=== PATIENT | male | born 1990 | race American Indian/Alaskan Native ===

== ENCOUNTER 2016-12-15 00:11 | Emergency (ER) | payer SELFPAY ==
[2016-12-15] MEDS ORDERED: TYLENOL PO ONE (00:32)
[2016-12-15] MEDS ORDERED: NACL 0.9% 1000 ML 1,000 ML IV ONE ×2 (00:33→03:22)
[2016-12-15 03:16] VITALS: BP 104/53
[2016-12-15] MEDS ORDERED: TORADOL IV ONE (03:22)
[2016-12-15 03:48] LABS: Hematocrit 35.8 % (35.5-45.6); Hemoglobin 12.3 gm/dl (11.8-15.2); Mean Corpuscular HGB Conc 34 % (32-34); Mean Corpuscular Hemoglobin 32 pg (28-32); Mean Corpuscular Volume 93 fl (84-94); Platelet Count 286 K/mm3 (140-440); Red Blood Count 3.84 M/mm3 (3.65-5.03); Red Cell Distribution Width 11.8 % (13.2-15.2); White Blood Count 4.4 K/mm3 (4.5-11.0)
[2016-12-15 04:26] LABS: Anion Gap 11 mmol/L; BUN/Creatinine Ratio 18.57; Blood Urea Nitrogen 13 mg/dL (9-20); Calcium 8.1 mg/dL (8.4-10.2); Carbon Dioxide 27 mmol/L (22-30); Chloride 101.1 mmol/L (98-107); Glucose 96 mg/dL (75-100); Potassium 3.5 mmol/L (3.6-5.0); Sodium 136 mmol/L (137-145)
[2016-12-15] MEDS ORDERED: K-DUR PO ONE (04:35)
--- NOTE | 2016-12-15 04:51 | Emergency Department Report ---
ED Fever HPI - General Chief Complaint: Chest Pain Stated Complaint: CHEST PAIN/SOB Time Seen by Provider: 12/15/16 00:41 Source: patient Exam Limitations: no limitations - History of Present Illness Initial Comments: 26-year-old male with no significant past medical history presents to the hospital complaining of fever and chest pain. Pain is in the anterior mid chest radiating to the left upper chest and lateral thoracic wall. Pain is rated 6/10 in intensity, sharp, constant, and some worsening with movement and palpation. No specific alleviating factors reported. Positive occasional cough reported and mild shortness of breath. Patient denies sore throat, headache, nausea, vomiting, abdominal pain, diarrhea, dysuria, sick contacts, or recent travel. ED Review of Systems ROS: Stated complaint: CHEST PAIN/SOB Other details as noted in HPI Comment: All other systems reviewed and negative Other: Constitutional: As per HPI Eyes: No eye pain visual changes or discharge ENT: No ear pain or throat pain Neck: Denies pain Respiratory: As per HPI Cardiovascular: As per HPI GI: Denies abdominal pain, nausea, vomiting, diarrhea : Denies dysuria, urinary frequency, or urgency Musculoskeletal: Denies back pain Skin: Denies rash, lesions, erythema Neurologic: Denies headache, numbness, weakness Psychiatric: Denies suicidal ideation, hallucinations ED Past Medical Hx - Past Medical History Previous Medical History?: No - Surgical History Past Surgical History?: No - Social History Smoking Status: Never Smoker Substance Use Type: Alcohol - Medications Home Medications: Home Medications Medication Instructions Recorded Confirmed Last Taken Type Azithromycin [Zithromax Z-ENRICO] 1 dose PO DAILY 5 Days 12/15/16 Unknown Rx Ibuprofen [Motrin] 800 mg PO Q8HR PRN #30 tablet 12/15/16 Unknown Rx traMADol [Ultram 50 MG tab] 50 mg PO Q6HR PRN #20 tablet 12/15/16 Unknown Rx ED Physical Exam - General Limitations: No Limitations - Other Other exam information: General: No limitations, patient is alert in no acute distress Head exam: Atraumatic, normocephalic Eyes exam: Normal appearance, pupils equal reactive to light, extraocular movements intact ENT: Moist mucous membrane, normal oropharynx, no exudate Neck exam: Normal inspection, full range of motion, no meningismus nontender Respiratory exam: Clear to auscultation bilateral, no wheezes, rales, crackles Cardiovascular: Normal rate and rhythm, normal heart sounds. Reproducible anterior chest wall tenderness Abdomen: Soft, nondistended, and nontender, with normal bowel sounds, no rebound, or guarding Extremity: Full range of motion normal inspection no deformity or tenderness or edema Back: Normal Inspection, full range of motion, no tenderness Neurologic: Alert, oriented x3, cranial nerves intact, no motor or sensory deficit Psychiatric: normal affect, normal mood Skin: Warm, dry, intact ED Course Vital Signs 12/15/16 12/15/16 12/15/16 00:21 01:10 01:12 Temperature 103.1 F H Pulse Rate 126 H 109 H Respiratory 16 18 14 Rate Blood Pressure 115/73 Blood Pressure [Left] O2 Sat by Pulse 96 98 100 Oximetry 12/15/16 12/15/16 12/15/16 01:14 01:30 02:00 Temperature 103 F H Pulse Rate 111 H 111 H 108 H Respiratory 14 22 22 Rate Blood Pressure 101/53 103/54 Blood Pressure 107/59 [Left] O2 Sat by Pulse 95 94 95 Oximetry 12/15/16 12/15/16 12/15/16 02:33 02:41 03:00 Temperature 98.8 F Pulse Rate 105 H 96 H Respiratory 21 19 Rate Blood Pressure 94/64 104/53 Blood Pressure [Left] O2 Sat by Pulse 93 93 Oximetry 12/15/16 12/15/16 12/15/16 03:31 04:01 04:15 Temperature Pulse Rate 94 H 83 89 Respiratory 12 18 12 Rate Blood Pressure 104/53 104/53 Blood Pressure 104/53 [Left] O2 Sat by Pulse 93 94 99 Oximetry - Reevaluation(s) Reevaluation #1: 12/15/16 04:48 Patient treated with Tylenol, Toradol, normal saline with improvement in symptoms ED Medical Decision Making - Lab Data Result diagrams: 12/15/16 00:31 12/15/16 00:31 Lab Results 12/15/16 12/15/16 12/15/16 Range/Units 00:31 00:31 00:31 WBC 4.4 L (4.5-11.0) K/mm3 RBC 3.84 (3.65-5.03) M/mm3 Hgb 12.3 (11.8-15.2) gm/dl Hct 35.8 (35.5-45.6) % MCV 93 (84-94) fl MCH 32 (28-32) pg MCHC 34 (32-34) % RDW 11.8 L (13.2-15.2) % Plt Count 286 (140-440) K/mm3 [place] % (Auto) [employer] VBG pH (7.320-7.420) Sodium 136 L (137-145) mmol/L Potassium 3.5 L (3.6-5.0) mmol/L Chloride 101.1 (98-107) mmol/L Carbon Dioxide 27 (22-30) mmol/L Anion Gap 11 mmol/L BUN 13 (9-20) mg/dL Creatinine 0.7 L (0.8-1.5) mg/dL Estimated GFR > 60 ml/min BUN/Creatinine Ratio 18.57 % Glucose 96 (75-100) mg/dL Lactic Acid 0.60 L (0.7-2.0) mmol/L Calcium 8.1 L (8.4-10.2) mg/dL Troponin T < 0.010 (0.00-0.029) ng/mL 12/15/16 Range/Units 00:52 WBC (4.5-11.0) K/mm3 RBC (3.65-5.03) M/mm3 Hgb (11.8-15.2) gm/dl Hct (35.5-45.6) % MCV (84-94) fl MCH (28-32) pg MCHC (32-34) % RDW (13.2-15.2) % Plt Count (140-440) K/mm3 [place] % (Auto) VBG pH 7.447 H (7.320-7.420) Sodium (137-145) mmol/L Potassium (3.6-5.0) mmol/L Chloride (98-107) mmol/L Carbon Dioxide (22-30) mmol/L Anion Gap mmol/L BUN (9-20) mg/dL Creatinine (0.8-1.5) mg/dL Estimated GFR ml/min BUN/Creatinine Ratio % Glucose (75-100) mg/dL Lactic Acid (0.7-2.0) mmol/L Calcium (8.4-10.2) mg/dL Troponin T (0.00-0.029) ng/mL - EKG Data -: EKG Interpreted by Me (sinus tach 120 left atrial enlargement) - EKG Data When compared to previous EKG there are: previous EKG unavailable - Radiology Data Radiology results: image reviewed (chest x-ray PA and lateral: No acute findings ) - Medical Decision Making Vital signs have improved with fever reduction and IV fluids. Patient be discharged home with a Z-Enrico for bronchitis and medication for pain and fever reduction. - Differential Diagnosis viral syndrome, pneumonia, bronchitis, sepsis Critical Care Time: No Critical care attestation.: If time is entered above; I have spent that time in minutes in the direct care of this critically ill patient, excluding procedure time. ED Disposition Clinical Impression: Acute bronchitis, Viral syndrome Disposition: TO HOME OR SELFCARE Is pt being admited?: No Does the pt Need Aspirin: No Condition: Stable Instructions: Acute Bronchitis (ED), Viral Syndrome (ED) Additional Instructions: Take the medication as prescribed. Return if symptoms worsen. You may take Tylenol motion as needed for pain or fever. Prescriptions: Azithromycin [Zithromax Z-ENRICO] 1 dose PO DAILY 5 Days Ibuprofen [Motrin] 800 mg PO Q8HR PRN #30 tablet PRN Reason: Pain traMADol [Ultram 50 MG tab] 50 mg PO Q6HR PRN #20 tablet PRN Reason: Pain Referrals: [facility] [Provider Group] - 3-5 Days MACIEL MALLORY MD [Staff Physician] - 3-5 Days Time of Disposition: 04:57
[2016-12-15 06:40] LABS: Blastocytes % (Manual) 0 %
[2016-12-15 06:41] LABS: Anisocytosis 1+
[2016-12-15 06:42] LABS: Diff Status Complete; Large Platelets Few
--- NOTE | 2016-12-15 09:42 | XRay Report ---
CHEST TWO VIEWS: 12/15/16 00:11:00 CLINICAL: Chest pain. COMPARISON: None FINDINGS: Normal heart and pulmonary vasculature. The lungs are normally expanded and clear.The bones and soft tissues are unremarkable. IMPRESSION: Normal chest.
== END 2016-12-15 05:33 | disposition home or self-care (01) ==
LOC: ED 00:11
DX: J20.9 Acute bronchitis, unspecified (principal); B34.9 Viral infection, unspecified
CPT/HCPCS: 36415; 71020; 80048; 82140; 82805; 84484; 85007; 85025; 87040; 93005; 93010; 96361; 96374; 99285; J1885; J7030